=== PATIENT | female | born 1955 | race Caucasian/White ===

== ENCOUNTER → 2016-03-22 | Outpatient (CLI) | payer BC ==
[2016-03-22 10:29] LABS: ANION GAP 13.4 MEQ/L (3-15)
== END ==
LOC: LAB 09:38
PROVIDERS: ATTEND Family Medicine
DX: I10 Essential (primary) hypertension (principal); E78.5 Hyperlipidemia, unspecified
CPT/HCPCS: 36415; 80048; 80061

== ENCOUNTER → 2016-08-02 | Outpatient (CLI) | payer BC ==
[2016-08-02 08:50] LABS: ALBUMIN 4.5 g/dL (3.4-5.0); ANION GAP 15.1 MEQ/L (3-15); TOTAL PROTEIN 7.6 g/dL (6.4-8.5)
== END ==
LOC: LAB 08:18
PROVIDERS: ATTEND Urology
DX: E78.5 Hyperlipidemia, unspecified (principal); Z85.528 Personal history of other malignant neoplasm of kidney
CPT/HCPCS: 36415; 80053; 80061